=== PATIENT | female | born 1995 | race Caucasian/White ===

== ENCOUNTER 2016-11-10 09:52 | Emergency (ER) | payer MEDICAID, OTHER ==
[~2016-11-10] VITALS: Wt 71.0 kg
[~2016-11-10 09:52] MED LIST: CYCL5TAB PO; NAPR-260 PO; NO CURRENT MEDS
[2016-11-10] MEDS ORDERED: IBUP-1542 PO (10:47)
[2016-11-10] MEDS ORDERED: AMOX1TAB10 PO (10:47)
[2016-11-10] MEDS ORDERED: ONDA-43 PO (10:48)
[2016-11-10] MEDS ORDERED: FLUT9.9S NASAL (10:49)
--- NOTE | 2016-11-10 11:29 | ERD ---
ER Documentation Chief Complaint Date/Time DATE: 11/10/16 TIME: 11:26 Chief Complaint CONGESTION, EARACHE HPI This is a 21-year-old female presents to the ER complaining of cough, runny nose , sore throat for the last 2 weeks. Over the last week patient states that she has felt a lot of pressure in her ears and headache that is also pressure-like which is worse whenever she bends forward. Patient also complains of sinus pressure. Patient has had nausea however denies any vomiting or diarrhea. Denies any difficulty in breathing, chest pain, shortness of breath. Patient had fevers, however is afebrile in the ER. Patient denies any urinary frequency or dysuria. ROS 12 point review of systems was done, all negative except per HPI. Medications Home Meds Active Scripts Fluticasone Propionate (Flonase Allergy Relief) 9.9 Ml [place].susp, 1 SPRAY NASAL BID, #1 BOTTLE TO EACH NOSTRIL Prov:MELANIE LEWIS 11/10/16 Ondansetron Hcl* (Zofran*) 4 Mg Tab, 4 MG PO Q4H Y for NAUSEA AND OR VOMITING for 5 Days, TAB Prov:MELANIE LEWIS 11/10/16 Ibuprofen* (Motrin*) 600 Mg Tab, 600 MG PO Q6, #30 TAB Prov:MELANIE LEWIS 11/10/16 Amoxicillin/Potassium Clav (Amox-Clav 875-125 mg Tablet) 875-125 mg Tab, 1 TAB PO BID for 7 Days, #14 TAB Prov:MELANIE LEWIS 11/10/16 Naproxen* (Naprosyn*) 500 Mg Tablet, 500 MG PO BID Y for PAIN AND/OR INFLAMMATION, #30 TAB Prov:JOSEPHINE DUONG PA-C 10/28/15 Cyclobenzaprine Hcl* (Cyclobenzaprine Hcl*) 5 Mg Tablet, 5 MG PO Q8H Y for PAIN , #15 TAB Prov:JOSEPHINE DUONG PA-C 10/28/15 Reported Medications [No Current Meds] No Conflict Check 07/13/09 Allergies Allergies: Coded Allergies: No Known Drug Allergies (Verified Allergy, Mild, 02/17/10) PMhx/Soc History of Surgery: No Anesthesia Reaction: No Hx Neurological Disorder: No Hx Respiratory Disorders: No Hx Cardiac Disorders: No Hx Psychiatric Problems: No Hx Miscellaneous Medical Probl: No Hx Alcohol Use: No Hx Substance Use: No Hx Tobacco Use: No Physical Exam Vitals Vital Signs Date Time Temp Pulse Resp B/P Pulse Ox O2 Delivery O2 Flow Rate FiO2 11/10/16 09:53 98.2 71 17 112/71 100 Physical Exam GENERAL: The patient is well developed and appropriate for usual state of health , in no apparent distress. HEENT: Atraumatic. Conjunctivae are pink. Pupils equal, round, and reactive to light. Extraocular muscles are grossly intact. Bilateral tympanic membranes are clear with no evidence of erythema, bulging or perforation. Tender to palpation over the frontal and maxillary sinuses. His tonsils, however no tonsillar exudate or uvular deviation. NECK: C-spine is soft and supple. There is no cervical lymphadenopathy. CHEST: Clear to auscultation bilaterally. There are no rales, wheezes or rhonchi. HEART: Regular rate and rhythm. No murmurs, clicks, rubs or gallops. EXTREMITIES: Equal pulses bilaterally. There is no peripheral clubbing, cyanosis or edema. No focal swelling or erythema. Full range of motion. Grossly neurovascularly intact. NEURO: Alert and oriented. Cranial nerves II through XII are intact. Motor strength in all 4 extremities with 5/5 strength. Sensation grossly intact. Normal speech and gait. Negative [place]omberg. +2 DTRs. SKIN: There is no apparent rash or petechia. The skin is warm and dry. Procedures/MDM This is a 21-year-old female presents to the ER with multiple complaints. Patient likely has an upper respiratory infection which has evolved into a sinus infection. Patient has had this over the last 2 weeks and has sinus tenderness. Patient will be treated for sinusitis with Augmentin. She will also be sent home with ibuprofen, Zofran Flonase. Patient is afebrile and well- appearing. She can follow-up with her primary care doctor within 1-2 days or return to ER sooner if symptoms worsen. My medical decision making shared with the patient she understands and agrees with plan. Departure Diagnosis: Primary Impression: Sinusitis Condition: Stable Patient Instructions: Sinusitis, Abx Tx Additional Instructions: Call your primary care doctor TOMORROW for an appointment during the next 1-2 days.See the doctor sooner or return here if your condition worsens before your appointment time. MELANIE LEWIS Nov 10, 2016 11:29
== END 2016-11-10 11:11 | disposition home or self-care (01) ==
LOC: FTE 09:52
DX: J32.9 Chronic sinusitis, unspecified (principal)
CPT/HCPCS: 99284

== ENCOUNTER 2017-10-29 20:08 | Emergency (ER) | END 2017-10-30 01:02 | disposition home or self-care (01) ==

== ENCOUNTER 2018-08-12 05:38 | Day surgery (SDC) | payer OTHER ==
[~2018-08-12] VITALS: Ht 160 cm; Wt 76.8 kg
[2018-08-12] VITALS (15 sets, daily range): BP systolic 103–137; BP diastolic 55–76; PULSE 72–108; RESP 13–18; Ht 160 cm; Wt 76.8 kg
[~2018-08-12 05:38] MED LIST changes: +AMOX1TAB10 PO; +FLUT9.9S NASAL; +HYDR-4011 PO; +IBUP-1542 PO; +IBUP-1561 PO; -NAPR-260 PO; +NAPR-985 PO; +ONDA4TAB13 PO
--- NOTE | 2018-08-12 06:57 | PREAC ---
Date/Time of Note Date/Time of Note DATE: 08/12/18 TIME: 06:56 Anesthesia Eval and Record Evaluation Time Pre-Procedure Interview DATE: 08/12/18 TIME: 06:56 Age 23 Sex female NPO: 8 hrs Preoperative diagnosis Chronic fibular nonunion, syndesmosis disruption, right ankle Planned procedure Operative arthroscopy,extensive debridement, ORIF of syndesmosis, fibula nonunion with calcaneal allograft, repair of anterior-inferior tibial ligament Past Medical History Past Medical History: Includes Pulm: Asthma Surgery & Anesthesia Issues No known issue Meds Anticoagulation: No Beta Cherrie within 24 hr: No Reason Beta Cherrie not given: Pt. not on B-Cherrie Active Scripts Ibuprofen* (Motrin*) 400 Mg Tab, 400 MG PO Q6H PRN for PAIN AND OR ELEVATED TEMP, #30 TAB Prov:DANIEL MIKE NP 10/30/17 Hydrocodone/Acetaminophen ([place] 5-325 Tablet) 1 Each Tablet, 1 TAB PO Q6H PRN for SEVERE PAIN LEVEL 7-10, #10 TAB Prov:DANIEL MIKE NP 10/30/17 Fluticasone Propionate (Flonase Allergy Relief) 9.9 Ml [place].susp, 1 SPRAY NASAL BID, #1 BOTTLE TO EACH NOSTRIL Prov:MELANIE LEWIS 11/10/16 Ondansetron Hcl* (Zofran*) 4 Mg Tab, 4 MG PO Q4H PRN for NAUSEA AND OR VOMITING for 5 Days, TAB Prov:MELANIE LEWIS 11/10/16 Ibuprofen* (Motrin*) 600 Mg Tab, 600 MG PO Q6, #30 TAB Prov:MELANIE LEWIS 11/10/16 Amoxicillin/Potassium Clav (Amox-Clav 875-125 mg Tablet) 875-125 mg Tab, 1 TAB PO BID for 7 Days, #14 TAB Prov:MELANIE LEWIS 11/10/16 Naproxen* (Naprosyn*) 500 Mg Tablet, 500 MG PO BID PRN for PAIN AND/OR INFLAMMATION, #30 TAB Prov:JOSEPHINE DUONG PA-C 10/28/15 Cyclobenzaprine Hcl* (Cyclobenzaprine Hcl*) 5 Mg Tablet, 5 MG PO Q8H PRN for PAIN, #15 TAB Prov:JOSEPHINE DUONG PA-C 10/28/15 Reported Medications [No Current Meds] No Conflict Check 07/13/09 Meds reviewed: Yes Allergies Coded Allergies: No Known Drug Allergies (Verified Allergy, Mild, 02/17/10) Allergies Reviewed: Yes Labs/Studies Labs Reviewed: Reviewed by anesthesiologist test: Negative Pre-procedure Exam Airway: Adequate mouth opening Mallampati: Mallampati I Teeth: Normal Lung: Normal Heart: Normal ASA Physical Status ASA physical status: 2 Emergency: None Planned Anesthetic General/MAC: ETT Planned Pain Management Single shot nerve block, Parenteral pain med Pre-operative Attestations Prior to commencing anesthesia and surgery, the patient was re-evaluated, there was verification of: *The patient's identity *The results of appropriate recent lab work and preoperative vital signs *The above evaluation not changing prior to induction *Anesthetic plan, risk benefits, alternative and complications discussed with patient/family; questions answered; patient/family understands, accepts and wishes to proceed. LEI DUONG MD Aug 12, 2018 06:57
[2018-08-12] MEDS ORDERED: ROPIVACAINE 0.5 % 30 ML VIAL ONE ×2 (07:12→10:43)
[2018-08-12] MEDS ORDERED: NEOMYC/POLYMYX/BACIT 30 GM OINT ONE (07:12)
[2018-08-12] MEDS ORDERED: POLYMYXIN/BACITRACIN 1L IRRIG ONE (07:12)
[2018-08-12] MEDS ORDERED: NORE1TAB75 ORAL (07:13)
[2018-08-12] MEDS ORDERED: MONT10TA24 ORAL (07:13)
[2018-08-12] MEDS ORDERED: ALBU8.5H8 INH (07:14)
[2018-08-12] MEDS ORDERED: ROCURONIUM 50 MG INJ ONE (07:25)
[2018-08-12] MEDS ORDERED: LIDOCAINE 2% (SDV) 5 ML INJ ONE (07:25)
[2018-08-12] MEDS ORDERED: ONDANSETRON 4 MG INJ ONE (07:25)
[2018-08-12] MEDS ORDERED: METOCLOPRAMIDE 10 MG INJ ONE (07:25)
[2018-08-12] MEDS ORDERED: MEPERIDINE 100 MG INJ ONE (07:25)
[2018-08-12] MEDS ORDERED: CEFAZOLIN 1 GM INJ ONE (07:25)
[2018-08-12] MEDS ORDERED: MIDAZOLAM 1 MG/ML 2 ML INJ ONE (07:25)
[2018-08-12] MEDS ORDERED: PROPOFOL 200 MG INJ ONE (07:25)
[2018-08-12] MEDS ORDERED: SUCCINYLCHOLINE CHLORIDE 100 MG/5 ML SYG IV ONE (07:25)
[2018-08-12] MEDS ORDERED: LACTATED RINGER'S 1,000 ML IV SCH (07:30)
--- NOTE | 2018-08-12 07:55 | HPN ---
Date/Time of Note Date/Time of Note DATE: 08/12/18 TIME: 07:35 Interval H&P Admission Note Pt. seen H&P reviewed: No system changes CHELA SHAW MD Aug 12, 2018 07:55
[2018-08-12] MEDS ORDERED: KETOROLAC 30 MG INJ IV SCH (08:00)
[2018-08-12] MEDS ORDERED: morphine 2 MG INJ IV PRN (08:00)
[2018-08-12] MEDS ORDERED: MEPERIDINE 25 MG INJ IV PRN (09:30)
[2018-08-12] MEDS ORDERED: METOCLOPRAMIDE 10 MG INJ IV PRN (09:30)
[2018-08-12] MEDS ORDERED: HYDROmorphONE 1 MG/5 ML IV SYRINGE IV PRN ×3 (09:30)
[2018-08-12] MEDS ORDERED: MIDAZOLAM 1 MG/ML 2 ML INJ IV PRN (09:30)
[2018-08-12] MEDS ORDERED: OXYCODONE/ACETAMINOPHEN (5/325) TAB PO PRN ×2 (09:30)
[2018-08-12] MEDS ORDERED: DIPHENHYDRAMINE 50 MG INJ IV PRN (09:30)
[2018-08-12] MEDS ORDERED: ONDANSETRON 4 MG INJ IV PRN (09:30)
[2018-08-12] MEDS ORDERED: THROMBIN 5000 UNIT VIAL ONE (09:59)
[2018-08-12] MEDS ORDERED: CA CHLORIDE 10% 10 ML SYRINGE ONE (09:59)
[2018-08-12] MEDS ORDERED: POLYMYXIN/BACITRACIN 1L IRRIG IRR ONE (10:33)
[2018-08-12] MEDS ORDERED: NEOMYC/POLYMYX/BACIT 30 GM OINT TOP ONE (10:33)
--- NOTE | 2018-08-12 12:16 | PAC ---
Date/Time of Note Date/Time of Note DATE: 08/12/18 TIME: 12:16 Post-Anesthesia Notes Post-Anesthesia Note Last documented vital signs Vital Signs Date Temp Pulse Resp B/P (MAP) Pulse Ox O2 O2 Flow FiO2 Time Delivery Rate 08/12/18 99.1 12:11 08/12/18 72 14 113/76 98 Room Air 11:43 (88) 08/12/18 6.0 10:48 Activity: WNL Respiratory function: WNL Cardiovascular function: WNL Mental status: Baseline Pain reasonably controlled: Yes Hydration appropriate: Yes Nausea/Vomiting absent: Yes LEI DUONG MD Aug 12, 2018 12:16
--- NOTE | 2018-08-12 13:15 | OPR ---
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 Right ankle AITFL disruption Right ankle syndesmosis disruption Postoperative Diagnosis Right ankle post traumatic synovitis Right ankle distal fibula non-union Right ankle AITFL disruption Right ankle syndesmosis disruption Operation/Procedure Performed Right ankle arthroscopy with extensive debridement Right ankle distal fibula non-union ORIF with calcaneal autograft and allograft Right calcaneal autograft harvest Right ankle AITFL repair Right ankle syndesmosis repair Ankle Stress xrays under Anesthesia Surgeon Chela Shaw MD Lithopress Operator none Anesthesia Type: general, other (popliteal block) Anesthesiologist: LEI DUONG MD Tourniquet Time: 74 min at 250 mmHg Estimated Blood Loss: 0 - 10 ml's Transfusion none Specimen none Grafts/Implants Arthrex Arthrocell allograft Arthrex Amnion allograft Arthrex AITFL Internal Brace Arthrex Distal fibular locking plate Arthrex Clint PRP at 5% Hct Complications none Pt Condition Post Procedure: stable Disposition: PACU Indications 23 year old female sustained a right ankle fracture and syndesmotic disruption approximately 8 to 10 months ago. Patient ongoing pain and complains of instability. On MRI and x-ray confirmed patient of a nonunion of the distal fibula. Also evidence on MRI of AITFL rupture and injury. Given her ongoing pain and symptoms patient was indicated for surgery. Risk Note: Patient was explained the risks and benefits of surgery and the p atient's [place] language including not limited to infection, bleeding, injury to blood vessels, nerves, ligaments or tendons. Risks of anesthesia, deep vein thrombosis and need for reduce future surgery. Patient acknowledged these risk by signing the surgical consent form. Procedure Description The patient was met in the PACU and the correct operative extremity confirmed with both patient and consent. The patient was then brought back in the operative theater, placed supine on operative table, given preoperative antibiotics and preoperative regional block anesthesia. The patient was then placed in the arthroscopic thigh hooper with all bony prominences well padded with a nonsterile tourniquet placed on the operative extremity. The patient was then prepped and draped in the normal sterile fashion. All parties in the room did a timeout and everyone agreed it was the correct patient, and extremity and procedure. Initial distraction was placed across the joint and the superficial peroneal nerve had been marked out prior to distraction, and using extreme caution to avoid any injury to the neurovascular structures, the anteromedial, anterolateral, and posterolateral portals were created in the standard fashion. The arthroscope was brought into the ankle and a 21-point exam was performed showing extensive hemorrhagic scar tissue and synovitis in the ankle with extensive scar tissue in both the medial, lateral, posterior and anterior gutters. After thorough debridement of the anterior medial, lateral, posterior and anterior gutters was done, the ankle was irrigated thoroughly with normal saline and the arthroscopes were removed. At this point, the thigh hooper was removed and the patient was well padded under both extremities and patient was then reprepped and draped, and all gloves and instruments were changed. Attention was initially directed to the lateral portion of the calcaneus where a small baltazar incision was made with care to avoid any injury to the sural nerve. Calcaneal autograft was then harvested from the calcaneus through this approach. The wound was then irrigated and closed in layers with a 3-0 Monocryl followed by 4-0 nylon. Attention was then turned initially to the distal fibular fracture. An incision was made over the the fibula. The incision was taken down to the fibula with care taken to avoid injury to the neurovascular structures. The fracture non union was identified and irrigated thoroughly of all the nonunion and debris. The canal was then opened up with a 2.0 mm drill bit on both the proximal distal aspects. This would allow to ensure further bony union after the fracture was well reduced. The fracture was then packed with both autograft and allograft and then reduced and fixated with a distal fibular plate and fibula was reduced and held out to show that there was fibular length and alignment and rotation had been re-achieved. Once this was shown, the wound was irrigated thoroughly. A manual external rotation stress xray was performed showing syndesmosis widening at the AITFL which was identified to be torn. The Arthrex suture tape was then woven through the plate eyelets and then passed in the anatomic direction of the anterior inferior tibiofibular ligament into a 4.75 mm swivel lock anchor. The ankle was then stressed again under anesthesia and shown to have decreased widening of the syndesmosis. Amniotic membrane was placed both on the plate and over the plate for further healing. Viscous platelet rich plasma was then laid over the ligament repair site. Talar tilt stress xray was performed showing no eversion stress. All wounds were thoroughly irrigated and closed with initially 2-0 Vicryl, followed by 3-0 Monocryl followed by 3-0 nylon in a vertical mattress fashion. All wounds were dressed with Xeroform, antibiotic ointment, 4 x 4s, 5 ABDs were placed and the patient was placed in a well-padded short leg splint. Tourniquet had been brought down prior to this and hemostasis had been achieved prior to the wound closure. The wounds were irrigated thoroughly prior to closure as well. All sponge and needle counts were correct. CHELA SHAW MD Aug 12, 2018 11:32
== END 2018-08-12 13:30 | disposition home or self-care (01) ==
LOC: SDS 05:38
PROVIDERS: ATTEND Orthopaedic Surgery
DX: S82.831K Other fracture of upper and lower end of right fibula, subsequent encounter for closed fracture with nonunion (principal); S93.431D Sprain of tibiofibular ligament of right ankle, subsequent encounter; M65.871 Other synovitis and tenosynovitis, right ankle and foot; X58.XXXD Exposure to other specified factors, subsequent encounter; J45.909 Unspecified asthma, uncomplicated
CPT/HCPCS: 27695; 27726; 29898; 73610; 82306; C1713; J1885; J2270; J2795; Z7512; Z7610; J0690; J2175; J2250; J2405; J2765